=== PATIENT | female | born 1950 | race African-American/Black ===

== ENCOUNTER 2016-08-27 04:11 | Observation (INO) | payer MEDICARE, OTHER ==
[2016-08-20 18:06] LABS: BASOPHILS 0.5 %; BASOPHILS ABSOLUTE 0.02 10/3/uL (0.0-0.16); EOSINOPHILS 1.7 %; EOSINOPHILS ABSOLUTE 0.07 10/3/uL (0.0-0.53); LYMPHOCYTES 60.1 %; LYMPHOCYTES ABSOLUTE 2.41 10/3/uL (0.67-4.30); MEAN CORPUS HGB CONC 33.7 g/dL (32.0-36.0); MEAN CORPUSCULAR HEMOGLOB 29.3 pg (26.0-34.0); MEAN CORPUSCULAR VOLUME 86.9 fL (80-100); MEAN PLATELET VOLUME 9.8 fL (9.2-13.0); MONOCYTES 5.7 %; MONOCYTES ABSOLUTE 0.23 10/3/uL (0.21-1.20); NEUTROPHILS ABSOLUTE 1.28 10/3/uL (2.02-8.40); PLATELET COUNT 271 10/3/uL (150-400); RBC DISTRIBUTION WIDTH 13.8 % (12.0-16.0); RED CELL COUNT 3.75 10/6/uL (4.0-5.6)
[2016-08-20 18:09] LABS: HEMATOCRIT 32.6 % (36.0-48.0); MANUAL DIFF NO %
--- NOTE | ~2016-08-27 | OP ---
Record Of Operation [facility] [address] [place]. [address] NAME: ARIA DOWNS : 46 STATUS : ADM IN [facility]#: [id number] AGE: 66 ADM/REG DATE : 08/27/16 MR#: [id number] REPORT SERV DATE: 08/28/16 DICTATED BY: CAYETANO RED II DATE: 08/28/16 REPORT STATUS : Draft TRANSCRIBED BY: MODL DATE: 08/28/16 DATE OF PROCEDURE: 08/27/2016 PREOPERATIVE DIAGNOSES: 1. 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 2. Neck pain with stenosis and radiculopathy. POSTOPERATIVE DIAGNOSES: 1. 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 2. Neck pain with stenosis and radiculopathy. PROCEDURES: 1. Hardware removal, C4-5 and C5-6. 2. C6-7 anterior interbody arthrodesis. 3. Application of prosthetic device, C6-7. 4. Anterior instrumentation, C6-7. 5. Use of the microscope. 6. Use of allograft substitute and bone marrow aspirate. SURGEON: Cayetano Red M.D. FLUIDS: 800 mL LR. ESTIMATED BLOOD LOSS: 25 mL. DRAINS: One drain. COMPLICATIONS: None. ANTIBIOTIC: Preoperatively. IMPLANTS: Alphatec. PREOPERATIVE HISTORY: This is very friendly 66-year-old female, who did well following her last surgery. She is now having adjacent segment degeneration at C6-7 with corresponding neck pain and stenosis with arm pain. We discussed the pros and cons of surgery and she was adamant on having something done as soon as possible. DESCRIPTION OF PROCEDURE: After informed consent was obtained, the patient was brought to the operating room at her request and general anesthesia achieved. She was placed in the supine position and the neck and iliac crest were prepped and draped in a sterile fashion. A 5 mL of bone marrow were aspirated followed by a right-sided longitudinal incision. The subperiosteal exposure was completed at C6-7. We also then dissected upon the plate. The plate was simply going to be in the way of placing the new instrumentation at C6-7. The hardware was then removed from C4-5 and C5-6. The plate and screws were removed. Record Of Operation [facility] [address] [place] [address] NAME: ARIA DOWNS : 46 STATUS : ADM IN PAT#: [id number] AGE: 66 ADM/REG DATE : 08/27/16 MR#: [id number] REPORT SERV DATE: 08/28/16 DICTATED BY: CAYETANO RED II DATE: 08/28/16 REPORT STATUS : Draft TRANSCRIBED BY: MODKatelynn DATE: 08/28/16 Next, the C6-7 level was addressed with [place] pin distraction. The microscope was brought into place and under microscopic visualization, the discectomy was completed at C6-7 with pituitary rongeurs, Kerrison rongeurs, and curettes. The endplates were then denuded of their cartilage. The posterior vertebral body osteophytes which were significant when I removed and the posterior longitudinal ligament removed. The anterior canal and foramen were now well decompressed with the Kerrison rongeurs and the curettes. Again, the canal and foramen were now aggressively decompressed with the Kerrison rongeurs. The prosthetic device was then trialed and chosen and placed at C6-7. This contained allograft substitute and bone marrow aspirate. At this point, the [place] pins were removed and the anterior fixation device placed with two screws in the C6 and C7. Multiplanar imaging confirmed acceptable placement of the implants. A deep drain was placed followed by standard closure and the patient was then extubated and transferred to PACU in stable condition. VLADISLAV/WEI Cayetano Red II, M.D. / [id number]
--- NOTE | ~2016-08-27 | CN ---
Consultation Report [address] [place]. [address] NAME: ARIA DOWNS : 46 STATUS : ADM IN PAT#: [id number] AGE: 66 ADM/REG DATE : 08/27/16 MR#: [id number] REPORT SERV DATE: 08/28/16 DICTATED BY: NAKITA HADDAD DATE: 08/28/16 REPORT STATUS : Draft TRANSCRIBED BY: MODL DATE: 08/28/16 CONSULTATION DATE OF CONSULTATION: REASON FOR CONSULTATION: Headache, chest pain. HISTORY OF PRESENT ILLNESS: This is a 66-year-old female patient, who does have chronic asthma and chronic headache, who was admitted to the hospital after elective cervical spine surgery. She had a surgery yesterday and this consultation has gone to the Internal Medicine Hospitalist Service with complaint of headache. She does have chronic headache on and off and she is taking Goody powder for that, and she has even seen the specialist and had an injection for the shoulder and gotten better. She said her headache started after herpes zoster with anxiety attack in the past and has been intermittent. The headache started since yesterday evening after the surgery. She is also taking chronic opioids with hydrocodone 10 at home. She states that her headache usually gets better with the pain shot. The headache is just bothering whole head from the front side. She is not sure whether there are aggravating factors such as light or sound. She said she does not have any shortness of breath or cough. Her breathing is fine at this point. She wants to get little bit comfortable from this headache. There is no double vision. No syncopal episode. No palpitation. No shortness of breath. No nausea or vomiting. REVIEW OF SYSTEMS: All systems reviewed and negative. PAST MEDICAL HISTORY: 1. Asthma. 2. GERD. 3. Hiatal hernia. 4. 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 5. History of migraine. 6. Osteoporosis. 7. Spinal stenosis. 8. Cervical spine osteoarthritis, status post surgery. 9. Carpal tunnel syndrome. 10.Chronic pain. Consultation Report [address] [place]. [address] NAME: ARIA DOWNS : 46 STATUS : ADM IN PAT#: [id number] AGE: 66 ADM/REG DATE : 08/27/16 MR#: [id number] REPORT SERV DATE: 08/28/16 DICTATED BY: NAKITA HADDAD DATE: 08/28/16 REPORT STATUS : Draft TRANSCRIBED BY: WEI DATE: 08/28/16 PAST SURGICAL HISTORY: 1. Total knee arthroplasty. 2. Bilateral total hip arthroplasty. 3. Rotator cuff repair. 4. Cervical spine surgery twice. 5. Carpal tunnel release bilaterally. 6. Hysterectomy. 7. Bilateral cataract surgery. 8. Breast reduction. 9. Bladder tack. SOCIAL HISTORY: The patient is . She is disabled. She quit smoking in 1991. ALLERGIES: MORPHINE, MAKES HER ITCHY. MEDICATIONS AT HOME: 1. DuoNeb as needed. 2. ProAir as needed. 3. Xanax 1 mg three times a day. 4. Vitamin C once a day. 5. Baclofen 10 mg three times a day. 6. Os-Jean Marie D 500 once a day. 7. Vitamin D 1000 units once a day. 8. Flonase once a day. 9. Advair Diskus one puff twice a day. 10.[place] 10/325 every six hours as needed. 11.Plaquenil 200 mg twice a day. 12.Singulair 10 mg once at bedtime. 13.Fish oil once a day. 14.Prilosec 20 mg twice a day. 15.Effexor 75 mg three times a day. PHYSICAL EXAMINATION: VITAL SIGNS: Blood pressure is 166/77, pulse was 84, temperature was 97.1, respiratory rate 15. Saturations 97% on 3 L of oxygen. GENERAL APPEARANCE: She is alert and awake. NECK: There is no jugular venous distention. No nodes palpable. CHEST: Clear to auscultation bilaterally from anterior. Has small crackles on both base posteriorly. CARDIOVASCULAR: There is no murmur, rub, or gallop. Has a regular rhythm and rate. ABDOMEN: Bowel sounds present. Soft. No organomegaly appreciated. EXTREMITIES: There is no pitting edema. LABORATORY DATA: Laboratory is not available at this point. Consultation Report [address] [place]. [address] NAME: ARIA DOWNS : 46 STATUS : ADM IN [facility]#: [id number] AGE: 66 ADM/REG DATE : 08/27/16 MR#: [id number] REPORT SERV DATE: 08/28/16 DICTATED BY: NAKITA HADDAD DATE: 08/28/16 REPORT STATUS : Draft TRANSCRIBED BY: MODL DATE: 08/28/16 STUDIES: Electrocardiogram showed normal sinus rhythm, and nonspecific T-wave abnormalities, that was obtained yesterday. ASSESSMENT AND PLAN: 1. Headache, more like chronic nature with chronic use of opioids. 2. Status post spine surgery. 3. History of anxiety and depression. 4. Chronic pain and opiate dependence. 5. Hypertension. Overall, the patient's headache sounds to be more likely chronic headache. We are going to treat with pain management and also we are going to add NSAID. We are going to add a calcium channel amber for the blood pressure control and headache is controlled and obtain a chest x-ray. EKL/MODL Nakita Haddad M.D. / [id number] CC: Cass Garcia II, M.D.
--- NOTE | ~2016-08-27 | DS ---
Discharge Summary [facility] [id number] [place]. [address] NAME: ARIA DOWNS : 46 STATUS : DIS IN PAT#: [id number] AGE: 66 ADM/REG DATE : 08/27/16 MR#: [id number] REPORT SERV DATE: 09/10/16 DICTATED BY: CAYETANO RED II DATE: 09/09/16 REPORT STATUS : Draft TRANSCRIBED BY: WEI DATE: 09/09/16 Data Collection from hospitalization DISCHARGE DIAGNOSES: 1. 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 2. Neck pain with stenosis and radiculopathy. 3. Chronic pain. 4. Asthma. 5. Gastroesophageal reflux disease. 6. Hiatal hernia. 7. History of viral meningitis secondary to herpes zoster virus. 8. History of migraines. 9. Osteoporosis. 10.Cervical spine osteoarthritis. 11.History of carpal tunnel syndrome. 12.Lupus. 13.Past history of tobacco use. CONSULTATIONS: Nakita Farley M.D. PROCEDURES PERFORMED: Hardware removal, C4-5 and C5-6; C6-7 anterior interbody arthrodesis; application of prosthetic device, C6-C7; anterior instrumentation, C6-7; use of microscope; use of allograft substitute and bone marrow aspirate on 08/27/2016. PATHOLOGY: Tissue from cervical spine area - benign cartilaginous tissue with crystalline material consistent with calcium pyrophosphate, benign bone and cartilage including medullary bone with bone marrow particles with trilineage hematopoiesis, areas of reparative change. MEDICATIONS: DuoNeb one nebulized inhaler four times a day as needed, ProAir two puffs via inhaler four times a day as needed, Xanax 1 mg three times a day, vitamin C 500 mg daily, Os Jean [place] plus D 500 mg daily, vitamin D 1000 units daily, Cardizem 60 mg every eight hours, Flonase nasal spray one spray nasally daily, Advair Diskus one puff via inhaler twice a day, Plaquenil 200 mg twice a day, Singulair 10 mg at bedtime, fish oil 1000 mg daily, Prilosec 20 mg twice a day, Percocet 5/325 one tablet every six hours as needed, Zanaflex 4 mg three times a day as needed, and Effexor XR 75 mg three times a day. CONDITION AT DISCHARGE: Stable. DISPOSITION: The patient was discharged home on a regular diet with activities as instructed. She would follow up with Dr. Margaret Clay on 09/17/2016. HOSPITAL COURSE: This is a 66-year-old female, who had done well since her last surgery. She was now having adjacent segment degeneration at C6-7 with corresponding neck pain and stenosis with arm pain. Pros and cons of surgery were discussed and she was adamant about having something done as soon as possible. Treatment options were discussed and it was elected to proceed with surgical intervention. She was admitted to the hospital at this time for further evaluation and treatment. Discharge Summary [facility] [address] [place]. [address] NAME: ARIA DOWNS : 46 STATUS : DIS IN PAT#: [id number] AGE: 66 ADM/REG DATE : 08/27/16 MR#: [id number] REPORT SERV DATE: 09/10/16 DICTATED BY: CAYETANO RED II DATE: 09/09/16 REPORT STATUS : Draft TRANSCRIBED BY: WEI DATE: 09/09/16 Upon admission, she was taken to the operating room where she underwent the above-mentioned procedure. She tolerated this well, and there were no complications. On postop day #1, she did complain of having a headache. She has a history of headaches, but had not had one in a while. She was able to swallow, but had trouble with larger pills. She was also coughing up phlegm and was requiring O2. She had an episode of chest pain overnight. She was seen in consultation by Dr. Nakita Farley. The patient has had chronic headaches on and off. She had been taking Goody Powder for that. She had even seen a specialist and had an injection for the shoulder and it had gotten better. She said her headache started after herpes zoster with an anxiety attack in the past and had been intermittent. The headache had started on the day of admission after surgery. She is also taking chronic opioid with hydrocodone 10 at home. She says that her headache usually gets better with the pain shot. Her headache was bothering the whole head from the front side. Electrocardiogram showed normal sinus rhythm and nonspecific T-wave abnormalities. It was felt that the headache was chronic in nature with chronic use of opioids. She was going to be treated with pain management and NSAIDs were added. Calcium channel amber was going to be added for blood pressure control. On postop day #2, she still complained of pain all over. She had no edema. Discharge planning was performed. She was evaluated by Physical Therapy. She did have a cough. She had some left upper extremity numbness and tingling. She said she had ambulated in the halls the day previously. Discharge planning was performed. On 08/30/2016, she was more alert. She continued to have some discomfort in the left upper extremity. She said she was feeling somewhat better. Discharge instructions were given. Due to her improved and stable condition, she was discharged home with the above-stated instructions. Information collected by: Lydia Cantu I submit the above information as my discharge summary. TG/MODKatelynn Cayetano Red II, M.D. / [id number] CC: Cass Garcia II, M.D.
[~2016-08-27 04:11] MED LIST: ACCUNEB INH; ADVAIR100 INH; ADVAIR250 INH; DERMATRAN TOP; DIAMODE2 MG PO; DUONEB INH; EFFEX75 PO; EFFEXXR75 PO; FISH-EPA1000 MG PO; FLEXERIL5 MG PO; FLONASE NAS; GENTEAL 15 ML O15 ML OPH; LIOR10 PO; LORT7 PO; LORTAB10 PO; MEDROLPAK4 PO; MSIMMR15 PO; NASACORTAQ NAS; NORCO1 TAB PO; OS500+D PO; P10 PO; PATADAY OP; PLAQ200B PO; PRILO PO; PROAIR HFA INH; PROVENT20 INH; PROVHFA INH; SINGULAIR1 PO; SYSTANE OP; THERGRANM PO; UNABLE TO RECALL; V5 PO; VENTOLIN HFA INH; VITAMIN D1000 UNI1 PO; VITC500 PO; VOLTAREN1 % TOP; XANAX1 MG PO; ZITHROMAX500 MG PO
[2016-08-28 14:26] LABS: BASOPHILS 0.1 %; BASOPHILS ABSOLUTE 0.01 10/3/uL (0.0-0.16); EOSINOPHILS 0 %; HEMATOCRIT 33.1 % (36.0-48.0); HEMOGLOBIN 11.1 g/dL (12.0-16.0); IMMATURE GRANULOCYTES 0.3 %; IMMATURE GRANULOCYTES ABSOLUTE 0.03 10/3/uL (0.0-0.11); LYMPHOCYTES 15.3 %; LYMPHOCYTES ABSOLUTE 1.49 10/3/uL (0.67-4.30); MEAN CORPUS HGB CONC 33.5 g/dL (32.0-36.0); MEAN CORPUSCULAR HEMOGLOB 29.6 pg (26.0-34.0); MEAN CORPUSCULAR VOLUME 88.3 fL (80-100); MEAN PLATELET VOLUME 9.3 fL (9.2-13.0); MONOCYTES 5.8 %; MONOCYTES ABSOLUTE 0.56 10/3/uL (0.21-1.20); NEUTROPHILS 78.5 %; NEUTROPHILS ABSOLUTE 7.63 10/3/uL (2.02-8.40); PLATELET COUNT 221 10/3/uL (150-400); RED CELL COUNT 3.75 10/6/uL (4.0-5.6)
[2016-08-28 14:27] LABS: MANUAL DIFF NO %; WHITE BLOOD CELLS 9.7 10/3/uL (4.5-10.5)
[2016-08-28 14:42] LABS: BUN (BLOOD UREA NITROGEN) 12 MG/DL (6-23); CHLORIDE, SERUM 103 MMOL/L (96-112); CO2 (CARBON DIOXIDE) 28 MMOL/L (24-34); CREATININE 0.83 MG/DL (0.55-1.02); GFR AFRICAN AMERICAN 84 ML/MIN (>=60); GFR NON AFRICAN AMERICAN 72 ML/MIN (>=60); GLUCOSE, SERUM 130 MG/DL (60-99); POTASSIUM, SERUM 3.9 MMOL/L (3.5-5.3); SODIUM, SERUM 141 MMOL/L (135-148); TROPONIN I <0.02 NG/ML (<0.05)
[2016-08-29 05:11] LABS: BASOPHILS 0.1 %; BASOPHILS ABSOLUTE 0.01 10/3/uL (0.0-0.16); EOSINOPHILS 0.4 %; EOSINOPHILS ABSOLUTE 0.03 10/3/uL (0.0-0.53); HEMATOCRIT 32.5 % (36.0-48.0); HEMOGLOBIN 10.9 g/dL (12.0-16.0); IMMATURE GRANULOCYTES 0.3 %; IMMATURE GRANULOCYTES ABSOLUTE 0.02 10/3/uL (0.0-0.11); LYMPHOCYTES 25.7 %; LYMPHOCYTES ABSOLUTE 2.03 10/3/uL (0.67-4.30); MANUAL DIFF NO %; MEAN CORPUS HGB CONC 33.5 g/dL (32.0-36.0); MEAN CORPUSCULAR HEMOGLOB 29.5 pg (26.0-34.0); MEAN CORPUSCULAR VOLUME 87.8 fL (80-100); MEAN PLATELET VOLUME 9.4 fL (9.2-13.0); MONOCYTES 6.8 %; MONOCYTES ABSOLUTE 0.54 10/3/uL (0.21-1.20); NEUTROPHILS 66.7 %; NEUTROPHILS ABSOLUTE 5.28 10/3/uL (2.02-8.40); PLATELET COUNT 207 10/3/uL (150-400); RBC DISTRIBUTION WIDTH 14.1 % (12.0-16.0); WHITE BLOOD CELLS 7.9 10/3/uL (4.5-10.5)
[2016-08-29 05:21] LABS: CALCIUM, SERUM 9.9 MG/DL (8.5-10.4); CHLORIDE, SERUM 104 MMOL/L (96-112); CO2 (CARBON DIOXIDE) 32 MMOL/L (24-34); CREATININE 0.88 MG/DL (0.55-1.02); GFR AFRICAN AMERICAN 78 ML/MIN (>=60); GFR NON AFRICAN AMERICAN 68 ML/MIN (>=60); GLUCOSE, SERUM 114 MG/DL (60-99); POTASSIUM, SERUM 3.7 MMOL/L (3.5-5.3); SODIUM, SERUM 143 MMOL/L (135-148)
[2016-08-29 05:22] LABS: BUN (BLOOD UREA NITROGEN) 20 MG/DL (6-23)
[2016-08-30] MEDS ORDERED: CARD60 PO (08:05)
[2016-08-30] MEDS ORDERED: PCET PO (08:08)
[2016-08-30] MEDS ORDERED: ZANAFLEX 4 MG TA4 MG PO (08:09)
== END 2016-08-30 11:57 | disposition home or self-care (01) ==
LOC: SDC/OF 04:11 → PACU 08:12 → 3SO 09:11
PROVIDERS: Orthopaedic Surgery
PROC: 079T3ZX Drainage of Bone Marrow, Percutaneous Approach, Diagnostic (ICD-10-PCS; 2016-08-27)
PROC: 0PP30JZ Removal of Synthetic Substitute from Cervical Vertebra, Open Approach (ICD-10-PCS; 2016-08-27)
PROC: 0RG10A0 Fusion of Cervical Vertebral Joint with Interbody Fusion Device, Anterior Approach, Anterior Column, Open Approach (ICD-10-PCS; principal; 2016-08-27 05:45)
PROC: 0RG10J0 Fusion of Cervical Vertebral Joint with Synthetic Substitute, Anterior Approach, Anterior Column, Open Approach (ICD-10-PCS; 2016-08-27 05:45)
PROC: 0RG10K0 Fusion of Cervical Vertebral Joint with Nonautologous Tissue Substitute, Anterior Approach, Anterior Column, Open Approach (ICD-10-PCS; 2016-08-27 05:45)
DX: M48.02 Spinal stenosis, cervical region (principal); M47.22 Other spondylosis with radiculopathy, cervical region; D64.9 Anemia, unspecified; J45.909 Unspecified asthma, uncomplicated; F32.9 Major depressive disorder, single episode, unspecified; K21.9 Gastro-esophageal reflux disease without esophagitis; L93.0 Discoid lupus erythematosus; J44.9 Chronic obstructive pulmonary disease, unspecified; M19.90 Unspecified osteoarthritis, unspecified site; M81.0 Age-related osteoporosis without current pathological fracture; F41.9 Anxiety disorder, unspecified; G43.909 Migraine, unspecified, not intractable, without status migrainosus; H91.90 Unspecified hearing loss, unspecified ear; Z90.710 Acquired absence of both cervix and uterus; Z98.1 Arthrodesis status; Z98.890 Other specified postprocedural states; Z88.5 Allergy status to narcotic agent; Z79.899 Other long term (current) drug therapy; Z79.52 Long term (current) use of systemic steroids; Z79.891 Long term (current) use of opiate analgesic; Z96.653 Presence of artificial knee joint, bilateral; Z96.643 Presence of artificial hip joint, bilateral; Z90.49 Acquired absence of other specified parts of digestive tract
CPT/HCPCS: 71020; 80048; 82962; 84484; 85025; 87641; 88300; 88304; 88311; 93005; 94640; 96374; 96375; 96376; 97116-GP; A9270-GY; C1713; G0378; J0690; J1170; J2250; J2405; J2710; J3010

== ENCOUNTER 2016-09-29 13:49 | Emergency (ER) | payer MEDICARE, OTHER ==
[2016-09-29 13:42] LABS: BASOPHILS 0.3 %; BASOPHILS ABSOLUTE 0.01 10/3/uL (0.0-0.16); EOSINOPHILS 3.2 %; EOSINOPHILS ABSOLUTE 0.12 10/3/uL (0.0-0.53); HEMATOCRIT 32.9 % (36.0-48.0); HEMOGLOBIN 10.9 g/dL (12.0-16.0); LYMPHOCYTES 51.6 %; LYMPHOCYTES ABSOLUTE 1.91 10/3/uL (0.67-4.30); MEAN CORPUS HGB CONC 33.1 g/dL (32.0-36.0); MEAN CORPUSCULAR HEMOGLOB 28.2 pg (26.0-34.0); MEAN PLATELET VOLUME 8.7 fL (9.2-13.0); MONOCYTES 6.2 %; MONOCYTES ABSOLUTE 0.23 10/3/uL (0.21-1.20); NEUTROPHILS 38.7 %; NEUTROPHILS ABSOLUTE 1.43 10/3/uL (2.02-8.40); PLATELET COUNT 212 10/3/uL (150-400); RBC DISTRIBUTION WIDTH 13.9 % (12.0-16.0); RED CELL COUNT 3.87 10/6/uL (4.0-5.6); WHITE BLOOD CELLS 3.7 10/3/uL (4.5-10.5)
[2016-09-29 13:43] LABS: ER CBC TAT 0 Hrs 06 MinsNP; MANUAL DIFF NO %
[~2016-09-29 13:49] MED LIST changes: +CARD60 PO; +PCET PO; +ZANAFLEX 4 MG TA4 MG PO
[2016-09-29 13:54] LABS: PARTIAL THROMBO TIME 28.5 SEC (22.5-37.2)
[2016-09-29 13:59] LABS: BUN (BLOOD UREA NITROGEN) 8 MG/DL (6-23); CALCIUM, SERUM 10.5 MG/DL (8.5-10.4); CHEST PAIN PROFILE TAT 0 Hrs 23 Mins; CHLORIDE, SERUM 104 MMOL/L (96-112); CO2 (CARBON DIOXIDE) 29 MMOL/L (24-34); CREATININE 0.93 MG/DL (0.55-1.02); GFR AFRICAN AMERICAN 73 ML/MIN (>=60); GFR NON AFRICAN AMERICAN 63 ML/MIN (>=60); GLUCOSE, SERUM 83 MG/DL (60-99); INTERNATIONAL NORMAL RATI 1.1 UNITS (-); POTASSIUM, SERUM 3.7 MMOL/L (3.5-5.3); PROTIME (NOT ORD) 13.8 SEC (12.0-14.5); SODIUM, SERUM 142 MMOL/L (135-148); TROPONIN I <0.02 NG/ML (<0.05)
== END 2016-09-29 17:15 | disposition home or self-care (01) ==
LOC: ER 13:49
PROVIDERS: Nurse Practitioner
DX: M54.2 Cervicalgia (principal); M54.9 Dorsalgia, unspecified; R51 Headache; I10 Essential (primary) hypertension; Z87.891 Personal history of nicotine dependence; Z88.5 Allergy status to narcotic agent; Z79.899 Other long term (current) drug therapy; W19.XXXA Unspecified fall, initial encounter
CPT/HCPCS: 70450; 71020; 72072; 72125; 80048; 83735; 84484; 85025; 85610; 85730; 93005; 96372; 99285; J1885

== ENCOUNTER 2016-10-12 19:07 | Emergency (ER) | payer MEDICARE | END 2016-10-12 21:19 | disposition home or self-care (01) | LOC: ER 19:07 | DX: S46.912A Strain of unspecified muscle, fascia and tendon at shoulder and upper arm level, left arm, initial encounter (principal); S76.012A Strain of muscle, fascia and tendon of left hip, initial encounter; I10 Essential (primary) hypertension; J44.9 Chronic obstructive pulmonary disease, unspecified; K21.9 Gastro-esophageal reflux disease without esophagitis; Z87.891 Personal history of nicotine dependence; W19.XXXA Unspecified fall, initial encounter; Z88.5 Allergy status to narcotic agent; Z79.899 Other long term (current) drug therapy; Z91.048 Other nonmedicinal substance allergy status | CPT/HCPCS: 73030-LT; 73080-LT; 73502-LT; 96374; 99284; J1885 ==